=== PATIENT | female | born 1990 | race Caucasian/White ===

== ENCOUNTER → 2016-12-28 | Outpatient (CLI) | payer OTHER ==
[~2016-12-28] MED LIST: ATR25 PO; HYDR50CA2 PO; IBUP-1459 PO; LMC25 PO
--- NOTE | 2016-12-28 13:08 | DIAGNOSTIC IMAGING REPORT ---
LEFT SHOULDER MIN 2 VIEWS ROUTINE CLINICAL HISTORY: M25.512,M79.622,M54.42,M54.2 trauma. Pain. COMPARISON: None. DISCUSSION: The bones and joint spaces appear intact. There is no evidence of fracture, dislocation or bony disease. There is no evidence for soft tissue swelling. IMPRESSION: Negative study. Electronically signed by: Kit Morton M.D. 12/28/2016 1:07 PM Dictated Date/Time: 12/28/2016 1:07 PM
--- NOTE | 2016-12-28 13:12 | DIAGNOSTIC IMAGING REPORT ---
C-SPINE ROUTINE 4 OR 5 VIEWS CLINICAL HISTORY: Neck pain COMPARISON STUDY: No previous studies for comparison. FINDINGS: There is a reversal the normal cervical lordosis. No fractures or subluxations are visualized. The bony neural foramen appear patent bilaterally. IMPRESSION: Reversal of the normal cervical lordosis. No fractures or subluxations identified. Electronically signed by: Kishan Jones M.D. 12/28/2016 1:11 PM Dictated Date/Time: 12/28/2016 1:10 PM
--- NOTE | 2016-12-28 13:13 | DIAGNOSTIC IMAGING REPORT ---
THORACIC SPINE 3 VIEWS ROUTINE CLINICAL HISTORY: Thoracic pain. COMPARISON STUDY: No previous studies for comparison. FINDINGS: Vertebral body heights are maintained. No fracture or suspicious lesion is present. There is minimal rightward curvature of the midthoracic spine. Disc spaces are preserved. IMPRESSION: No significant abnormality of the thoracic spine. Electronically signed by: Aki Andrade M.D. 12/28/2016 1:11 PM Dictated Date/Time: 12/28/2016 1:10 PM
--- NOTE | 2016-12-28 13:13 | DIAGNOSTIC IMAGING REPORT ---
L-SPINE MIN 4 VIEWS ROUTINE CLINICAL HISTORY: Low back pain COMPARISON STUDY: No previous studies for comparison. FINDINGS: There is mild to moderate fecal retention. There is no pathologic bowel dilatation. An IUD is identified. There is a minimal spinal curvature convex to the right. No acute fractures or subluxations are visualized. No destructive lesions are evident. IMPRESSION: 1. No fractures, subluxations, or destructive lesions are visualized. 2. Mild to moderate fecal retention Electronically signed by: Kishan Jones M.D. 12/28/2016 1:12 PM Dictated Date/Time: 12/28/2016 1:11 PM
== END | disposition home or self-care (01) ==
LOC: C.RAD 12:16
PROVIDERS: ATTEND Family Medicine
DX: M54.2 Cervicalgia (principal); M79.622 Pain in left upper arm; M25.512 Pain in left shoulder; M54.42 Lumbago with sciatica, left side

== ENCOUNTER → 2017-06-22 | Outpatient (CLI) | payer OTHER ==
[~2017-06-22] MED LIST changes: +GADAVIST IV PRN
--- NOTE | 2017-06-22 20:31 | DIAGNOSTIC IMAGING REPORT ---
Brain and internal auditory canal MRI WITH AND WITHOUT CONTRAST HISTORY: HEAD Pressure, blurred VISION* TECHNIQUE: Multiplanar multisequence MRI of the brain and internal auditory canal were performed both before and after the intravenous administration of contrast. COMPARISON STUDY: None. FINDINGS: There are no areas of restricted diffusion to suggest acute infarction. The midline structures are intact. The paranasal sinuses are clear. The ventricles and sulci are within normal limits for age. There is no mass, hematoma, midline shift. The major vascular flow-voids at the skull base are well maintained. Postcontrast sequences show no areas of abnormal enhancement. No abnormal enhancement or masses within the internal auditory canals. The mastoid air cells are clear. No evidence for inner ear dysplasia. The 7th and 8th cranial nerves are normal in course and caliber. IMPRESSION: No acute intracranial abnormality. Normal bilateral internal auditory canals. Electronically signed by: Rafael Dumont M.D. 06/22/2017 8:30 PM Dictated Date/Time: 06/22/2017 8:22 PM
== END | disposition home or self-care (01) ==
LOC: C.MRI 18:33
PROVIDERS: ATTEND Nurse Practitioner Family
DX: H91.92 Unspecified hearing loss, left ear (principal); H53.8 Other visual disturbances; R51 Headache

== ENCOUNTER 2024-03-02 21:17 | Inpatient (IN) ==
--- OUTSIDE RECORDS SUMMARY | 2024-03-02 21:24 | External Medical Summary | Summary of Care ---
Author Name Unknown Organization [facility] Address [address] [place] [address] Phone [phone] Care Team Providers Care Small Animal Caretaker Name Role Phone Rodri Nancie Young DO Primary Care Provider Reason for Referral * Evaluate & Treat - Unlimited Visits (Within 10 days (routine)) - Pending Review Specialty Diagnoses / Procedures Referred By Eduardo ball Referred To Contact Rheumatology Diagnoses Hypermobile Azeem-Danlos syndrome Awa Damon CRNP [address] [place] [address] Referral ID Status Reason Start Date Expiration Date Visits Requested Visits Authorized [id number] Pending Review Specialty Services Required 02/29/[phone] Question Answer Referral Priority Within 10 days (routine) Where should this appointment be scheduled? [facility] Reason for referral: Other Conditions Comments Notes posted. Encounter Details Date Type Department Care Team (Late st Contact Info) Description 02/29/2024 Orders Only [facility], [address] *DO NOT REMOVE THIS DEPARTMENT* [place] [id number] Request, External Referral Hypermobile Azeem-Danlos syndrome* Allergies Active Allergy Reactions Criticality Noted Date Comments Latex 06/18/2023 Other reaction(s): rash documented as of this encounter (statuses as of 02/29/2024) Medications Medication Sig Dispensed Refills Start Date End Date Status azithromycin (ZITHROMAX Z-GHISLAINE) 250 MG TabletIndications:Kvng galvez Take two tablets by mouth on first day, then 1 tablet daily until gone 6 Tab 0 10/19/2015 Active Escitalopram Oxalate 5 MG Oral Tablet (Lexapro) TAKE 1 TABLET BY MOUTH EVERY DAY DIRECTED 0 05/30/2023 Active lamoTRIgine 150 MG Oral Tablet (LaMICtal) 1 Tablet. 0 01/22/2023 Ac tive Propranolol HCl 20 MG Oral Tablet (Inderal) TAKE 1 TABLET BY MOUTH EVERY DAY NEEDED 0 06/03/2023 Active Mirena (52 MG) 20 MCG/DAY Intrauterine Intrauterine Device (Levonorgestrel) Insert 1 Each into uterus once. 0 Active documented as of this encounter (statuses as of 02/29/2024) Active Problems Problem Noted Date Diagnosed Date Bipolar I disorder, most recent episode depresse d, moderate 04/01/2013 Bulimia 04/01/2013 ATYPICAL EATING DISORDER 05/02/2004 documented as of this encounter (statuses as of 02/29/2024) Resolved Problems Problem Noted Date Diagnosed Date Resolved Date Absence of menstruation 07/03/200504/2006 Absence of menstruation 05/02/20040 04/2004 Varicella without complication 05/24/2006 documented as of this encounter (statuses as of 02/29/2024) Immunizations Name Administration Dates Next Due HEP A - Hepatitis A (Adult > 18 yrs) 06/13/2012 Hepatitis B, 0-19 yrs 10/20/1999 Meningococcal Conjugate Vaccine (Menactra/Menveo ) 05/24/2006 PPD 06/13/2012,05/24/2006 documented as of this encounter Social History Tobacco Use Types Packs/Day Years Used Date Smoking Tobacco: Never Smokeless Tobacco: Never Alcohol Use Standard Drinks/Week Comments No 0 (1 standard drink = 0.6 oz pur e alcohol) Sex and Gender Information Value Date Recorded Sex Assigned at Not on file Gender Identity Not on file Sexual Orientation Not on file Job Start Date Occupation Industry Not on file Not on file Not on file documented as of this encounter Plan of Treatment Scheduled Referrals Name Type Priority Associated Diagnoses Order Schedule RHEUMATOLOGY REFERRAL OP Referral Within 10 days (routine) Hypermobile Azeem-Danlos syndrome Ordered: 02/29/2024 Health Maintenance Due Date Last Done Comments DTaP,Tdap,and Td Vaccines (5 - Tdap) 08/26/2003 08/25/2003, 02/21/1993, 08/31/1989, Additional history exists Pap Smear 10/01/2015 10/01/2012, 08/14/2011 Cervical Cancer Screening 02/19/2018 HPV/Co-Test 02/19/2018 COVID-19 Vaccine ( season) 2023 11/02/2021, 03/31/2021, 03/10/2021 Influenza Vaccine (FLU shot) (Season Ended) 2024 08/19/2021, 10/30/2003 Hepatitis B Completed 10/20/1999, 04/20, 04/05/1999 MENINGOCOCCAL (MENACTRA/MENVEO) Completed 05/24/2006, 05/24/2006 Pneumococcal Vaccine: Pediatrics (0 to 5 Years) and At-Risk Patients (6 to 64 Years) Aged Out No longer eligible based on patient's age to complete this topic documented as of this encounter Medical Devices Not on filedocumented as of this encounter Visit Diagnoses Diagnosis Hypermobile Azeem-Danlos syndrome- Primary documented in this encounter Care Teams Small Animal Caretaker Relationship Specialty Start Date End Date Nancie Mace DO [address] [place] [address] PCP - General Family Medicine 06/13/12 documented as of this encounter
--- OUTSIDE RECORDS SUMMARY | 2024-03-02 21:24 | External Medical Summary | Continuity of Care Document ---
Author Name Unknown Organization [facility] [address] Address [address] [place], [place] [id number] Care Team Providers Care Print Decorator Name Role Phone Karyn Mcmahan Primary Care Physician [phone] [id number]): [facility]/25/24 - 02/25/24 [facility] [address] [facility] [address] [phone] Encounter Diagnosis Other rodent exterminator (current) drug therapy(Final) - Insect bite (nonvenomous), left hip, initial encounter(Final) - Chronic fatigue, unspecified(Final) - Discharge Disposition: Home or Self Care Attending Physician: RONY Olivo Erin C Referring Physician: RONY Olivo Erin C Allergies, Adverse Reactions, Alerts Substance Reaction Severity Status Latex rash Active Immunizations Given and Recorded Vaccine Date Status Refusal Reason SARS-CoV-2 (COVID-19) mRNA BNT-162b2 vax 1 11/02/21 Recorded SARS-CoV-2 (COVID-19) mRNA BNT-162b2 vax 2 03/31/21 Recorded SARS-CoV-2 (COVID-19) mRNA BNT-162b2 vax 3 03/10/21 Recorded influenza virus vaccine, inactivated 08/19/21 Rafael rded influenza virus vaccine, inactivated 08/24/20 Give n tetanus/diphtheria/pertuss, acel (Tdap) 06/21/20 G iven hepatitis A adult vaccine 4 06/13/12 Recorded meningococcal conjugate vaccine 5 05/24/06 Recorde d tetanus toxoids-diphtheria, Td (Adult) 6 08/25/03 Recorded hepatitis B pediatric vaccine 7 10/20/99 Recorded hepatitis B adult vaccine 8 05/16/99 Recorded hepatitis B adult vaccine 9 04/05/99 Recorded poliovirus vaccine, live, trivalent 10 02/21/93 Re corded poliovirus vaccine, live, trivalent 11 08/31/89 Re corded poliovirus vaccine, live, trivalent 12 05/21/89 Re corded poliovirus vaccine, live, trivalent 13 88 Re corded poliovirus vaccine, live, trivalent 14 88 Re corded poliovirus vaccine, live, trivalent 15 88 Re corded measles/mumps/rubella virus vaccine 16 02/21/93 Re corded measles/mumps/rubella virus vaccine 17 05/21/89 Re corded diphtheria/pertussis, whole cell/tetanus 18 02/21/93 Recorded diphtheria/pertussis, whole cell/tetanus 19 09/03/89 Recorded diphtheria/pertussis, whole cell/tetanus 20 08/31/89 Recorded diphtheria/pertussis, whole cell/tetanus 21 05/21/89 Recorded diphtheria/pertussis, whole cell/tetanus 22 88 Recorded diphtheria/pertussis, whole cell/tetanus 23 88 Recorded diphtheria/pertussis, whole cell/tetanus 24 88 Recorded diphtheria/pertussis, whole cell/tetanus 25 88 Recorded 1Result Comment: 2022-01-20: Historical information-source unspecified 2Result Comment: 2022-01-20: Historical information-source unspecified 3Result Comment: 2022-01-20: Historical information-source unspecified 4Result Comment: 2020-06-14: Historical information-source unspecified 5Result Comment: 2020-06-14: Historical information-source unspecified 6Result Comment: 2020-06-14: Historical information-source unspecified 7Result Comment: 2020-06-14: Historical information-source unspecified 8Result Comment: 2020-06-14: Historical information-source unspecified 9Result Comment: 2020-06-14: Historical information-source unspecified 10Result Comment: 2020-06-14: Historical information-source unspecified 11Result Comment: 2020-06-14: Historical information-source unspecified 12Result Comment: 2020-06-14: Historical information-source unspecified 13Result Comment: 2020-06-14: Historical information-source unspecified 14Result Comment: 2020-06-14: Historical information-source unspecified 15Result Comment: 2020-06-14: Historical information-source unspecified 16Result Comment: 2020-06-14: Historical information-source unspecified 17Result Comment: 2020-06-14: Historical information-source unspecified 18Result Comment: 2020-06-14: Historical information-source unspecified 19Result Comment: 2020-06-14: Historical information-source unspecified 20Result Comment: 2020-06-14: Historical information-source unspecified 21Result Comment: 2020-06-14: Historical information-source unspecified 22Result Comment: 2020-06-14: Historical information-source unspecified 23Result Comment: 2020-06-14: Historical information-source unspecified 24Result Comment: 2020-06-14: Historical information-source unspecified 25Result Comment: 2020-06-14: Historical information-source unspecified Medications escitalopram 5 mg oral tablet Start: 01/11/21 8:24:00 EST, See Instructions, Disp# 30 each, ., other Start Date: 01/11/21 Status: Ordered hydrOXYzine Start: 02/04/24 16:13:00 EDT Start Date: 02/04/24 Status: Ordered ibuprofen Start: 02/03/16 11:48:00, 200 mg =, PO, q6h, PRN: as needed for menstrual pain Start Date: 02/03/16 Status: Ordered lamoTRIgine 150 mg oral tablet Start: 01/22/23 8:35:00 EST, 1 tab, PO, Daily Start Date: 01/22/23 Status: Ordered Mirena 52 mg intrauterine device Start: 04/26/21 8:10:00 EDT, 1 each, intrauterine, ONCE, Disp# 1 each, other Start Date: 04/26/21 Status: Ordered propranolol Start: 12/14/20 13:02:00 EST, 20 mg =, PO Start Date: 12/14/20 Status: Ordered Problem List Condition Confirmation Course Effective Dates Status Health St atus Informant Bipolar 2 disorder Confirmed Active Dysmenorrhea Confirmed Active KIT (generalized anxiety disorder) Confirmed Active Hx of bulimia nervosa Confirmed Active Chronic left SI joint pain Confirmed Active Procedures Procedure Date Related Diagnosis Body Site Status IUD contraception 1 11/19/20 Compl eted Insertion of IUD 09/11/16 Complete d 1Mirena Results Laboratory List Name Date Complete Blood Count w Differential (CBC ,DIFFH) 02/25/24 Mariya Thomas Antibodies. (MARIYA THOMAS A BS) 02/25/24 Lyme Antibodies, IgG and IgM (LYME ABS I GG,IGM) 02/25/24 Request to FAX Report (First Location) ( ACC NO TO BE FAXED) 02/25/24 Viral Capsid Ab, IgM (VIRAL CAPSID AB, I GM) 02/25/24 Most recent to oldest [Reference Range]: 1 Lyme Antibodies, IgG/IgM [NEG] PRESUMPTI VELY POSITIVE, SCREENING ASSAY, CONFIRMATION TO FOLLOW *Abnormal* (02/25/24 4:03 PM) Phone No [phone] (02/25/24 4:03 PM) MPV [9.0-12.2 fL] 12.0 fL (02/25/24 4:03 PM) Immature Gran% 0.0 % (02/25/24 4:03 PM) Neut% 53.8 % (02/25/24 4:03 PM) Lymph% 39.3 % (02/25/24 4:03 PM) [place]% 4.7 % (02/25/24 4:03 PM) Baso% 1.1 % (02/25/24 4:03 PM) Eos% 1.1 % (02/25/24 4:03 PM) Immat Gran, Abs [0-0.4 K/uL] 0.00 K/uL 2 (02/25/24 4:03 PM) Neut, Abs [2.0-7.7 K/uL] 2.55 K/uL (02/25/24 4:03 PM) Lymph, Abs [1.0-3.4 K/uL] 1.86 K/uL (02/25/24 4:03 PM) [place], Abs [0-1.0 K/uL] 0.22 K/uL (02/25/24 4:03 PM) Baso, Abs [0-0.1 K/uL] 0.05 K/uL (02/25/24 4:03 PM) Eos, Abs [0-0.5 K/uL] 0.05 K/uL (02/25/24 4:03 PM) Type of Diff: AUTO *Unknown* (02/25/24 4:03 PM) RDW [11.5-14.2 %] 12.0 % (02/25/24 4:03 PM) EBV Interp INDETERMINATE-PLEASE RESUBMIT *Unknown* (02/25/24 4:03 PM) EBV Nuc Ab [NEG] NEGATIVE 3 *Unknown* (02/25/24 4:03 PM) Hct [35-44 %] 36.5 % (02/25/24 4:03 PM) Hgb [11.7-15.0 g/dL] 11.9 g/dL (02/25/24 4:03 PM) MCH [28-33 pg] 29.5 pg (02/25/24 4:03 PM) MCHC [32-36 g/dL] 32.6 g/dL (02/25/24 4:03 PM) MCV [81-96 fL] 90.6 fL (02/25/24 4:03 PM) Plts [150-350 K/uL] 190 K/uL (02/25/24 4:03 PM) RBC [3.90-5.00 M/uL] 4.03 M/uL (02/25/24 4:03 PM) V Capsid IgG [NEG] POSITIVE *Abnormal* (02/25/24 4:03 PM) V Capsid IgM [NEG] NEGATIVE 4 *Unknown* (02/25/24 4:03 PM) WBC [4.0-10.4 K/uL] 4.73 K/uL (02/25/24 4:03 PM) 1Result Comment: Testing Performed By: Dept of Pathology [facility] [address], [address] [place] [address] 2Result Comment: Testing Performed By: Dept of Pathology [facility] [address], [address] [place] [address] 3Result Comment: Results from immunocompromised patients should be interpreted with caution. 4Result Comment: Results from immunocompromised patients should be interpreted with caution. Social History Social History Type Response Smoking Status Never smoked cigaret kevin Sex Female Patient Care team information Care Team Personnel Name: FERNANDO Mcmahan Tara Position: Nurse Pract - Family Med Member Role: Primary Care Provider Address: Address: [address] [place] [address], [place] [address] [place] Care Team Related Persons Name: SHAY DOWNING Name: ARNOLDO CHAPMAN Address: home [address] [place] [phone]
[2024-03-02 22:07] LABS: Appearance Urine Cloudy (Clear); Bacteria Urine Automated 3+ (None Seen); Bilirubin Urine Negative (Negative); Blood Urine Negative (Negative); Color Urine Yellow; Glucose Urine UA Negative (Negative); Ketones Urine Negative (Negative); Leukocyte Esterase Urine 1+ (Negative); Nitrite Urine Negative (Negative); Protein Urine Negative (Negative); Specific Gravity Urine 1.017 (1.000-1.030); Urobilinogen Urine Negative (Negative); pH Urine 5.5 (4.5-7.5)
[2024-03-02 22:10] LABS: Basophils # (auto) 0.06 K/uL (0.00-0.20); Eosinophils # (auto) 0.06 K/uL (0.00-0.50); Hematocrit (blood only) 36.7 % (37.0-47.0); Hemoglobin 12.4 g/dl (12.0-16.0); Immature Granulocytes # (auto) 0.02 K/uL (0.01-0.20); Immature Granulocytes % (auto) 0.3 %; Lymphocytes # (auto) 1.75 K/uL (1.20-3.40); Mean Corpuscular Hemoglobin 30.2 pg (25.0-34.0); Mean Corpuscular Hgb Conc 33.8 g/dL (32.0-36.0); Mean Corpuscular Volume 89.5 fL (80.0-100.0); Mean Platelet Volume 12.8 fL (9.4-12.4); Monocytes # (auto) 0.44 K/uL (0.11-0.59); Monocytes % (auto) 7.1 %; Neutrophils # (auto) 3.91 K/uL (1.40-6.50); Neutrophils % (auto) 62.6 %; Platelet Count 200 K/uL (130-400); RDW Coefficient of Variation 11.9 % (11.5-14.5); RDW Standard Deviation 38.4 fL (36.4-46.3); White Blood Count 6.24 K/ul (4.8-10.8)
[2024-03-02 22:27] LABS: Acetaminophen < 3 ug/ml (10-30); Albumin Globulin Ratio 1.7 (0.9-2); Albumin Level 4.8 gm/dl (3.4-5.0); BUN Creatinine Ratio 16.3 (10-20); Bilirubin,Total 0.3 mg/dl (0.2-1.0); Calcium 9.6 mg/dl (8.6-10.3); Est GFR (African American) 109.9 ml/min; Est GFR (Non-African American) 94.9 ml/min; Globulin 2.9 gm/dl (2.5-4.0); Salicylate < 3.0 mg/dl (3.0-30); Total Protein 7.7 gm/dl (6.0-8.3)
[2024-03-02 22:37] LABS: Amphetamines+Metham, Urine Neg (Neg); Barbiturates, Urine Neg (Neg); Benzodiazepine, Urine Neg (Neg); Cocaine, Urine Neg (Neg); MDMA (Ecstacy), Urine Neg (Neg); Marijuana, Urine Neg (Neg); Methadone, Urine Neg (Neg); Opiate, Urine Neg (Neg); Phencyclidine, Urine Neg (Neg)
[2024-03-02 22:42] LABS: Thyroid Stimulating Hormone 6.526 uIu/ml (0.300-4.500)
[2024-03-02 23:17] LABS: T4 Free Thyroxine 0.7 ng/dl (0.61-1.60)
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
[2024-03-03 00:03] LABS: Pregnancy Test, Urine Negative (Negative)
[2024-03-03] MEDS ORDERED: MAGNESIUM HYDROXIDE SUSP 30 ML UDC PO PRN (00:55)
[2024-03-03] MEDS ORDERED: BISMUTH SUBSALICYLATE LIQD 236 ML PO PRN (00:55)
[2024-03-03] MEDS ORDERED: SODIUM CHLORIDE 0.65% NA SOLN 45 ML (OCEAN) PRN (00:55)
[2024-03-03] MEDS ORDERED: ACETAMINOPHEN 325 MG TAB PO PRN (00:55)
[2024-03-03] MEDS ORDERED: ALUMINUM/MAGNESIUM SUSP 30 ML UDC PO PRN (00:55)
--- NOTE | 2024-03-03 04:02 | Emergency Department Note ---
ED Visit Note I received this patient in signout at the change of shift from Dr. Moreau pending bed search on a 201 for suicidal ideation. The patient was referred to [facility] and accepted for inpatient admission on a voluntary basis. Please refer to previous documentation for further details of the history, physical and visit. .
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
[2024-03-03] MEDS: lamoTRIgine 100 MG TAB PO SCH (11:48)
[2024-03-03] MEDS: valACYclovir HCL 500 MG TABLET PO SCH ×2 (11:48→20:52)
[2024-03-03] MEDS: ESCITALOPRAM OXALATE 10 MG TAB PO SCH (15:19)
[2024-03-03] MEDS: PROPRANOLOL HCL 20 MG TAB PO PRN (17:33)
[2024-03-03] MEDS ORDERED: ARTIFICIAL TEARS OPB PRN (20:27)
[2024-03-03] MEDS: hydrOXYzine HCl 25 MG TAB PO PRN ×2 (22:09→23:36)
--- NOTE | 2024-03-04 08:48 | Psychiatric Progress Note ---
Date of Service March 04, 2024 Impression / Recommendations Lelia Rosenthal is a 34 year old woman with a history of eating disorder, BPAD and KIT who was admitted for increased impulsivity, self-harm, SI and anger in the context of multiple recent stressors including health issues (joint pain), challenging relationship with her boyfriend due to his significant alcohol use disorder and intense emotional reactivity. 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 She is deemed in need of psychiatric hospitalization for diagnostic clarification, safety and stabilization, medication management and development of further coping skills. MNPR due to recent impulsive anger/aggression 03/04/2024: Increased distress last evening after taking on the phone with her partner. She is trying to process recent events and how her anger got to the point of her becoming physically aggressive. Processing the shame associated with this but also the anger she still has from her partner's recent lying and secretive behavior around his alcohol use. She is planning to spend time staying at her parents home until her partner can move out of their apartment. Working on increasing coping skills and considering use of DBT to develop better ways of managing distress and emotional reactivity. Mood Disorder Questionnaire consistent with BPAD and screening tool and discussion also consistent with likely diagnosis of Borderline Personality Disorder for which we discussed self guided DBT resources since there is no local DBT IOP or DBT group which she is very motivated to try. Overall, I spent a total of 52 minutes on this case including meeting with the patient, reviewing the chart, nursing report, multidisciplinary team meeting, orders, and documentation. (1) Suicidal ideations: (2) Homicidal ideations: (3) Borderline personality disorder in adult: (4) Bipolar disorder: (5) KIT (generalized anxiety disorder): Plan 03/04/2024: Continue current medications and tx plan. 03/03/2024: The patient was admitted to the [facility] ([facility]) on q15 min checks (behavioral with suicide precautions) for safety. The patient will participate in group, recreational, and milieu therapies and will be offered additional individual and family sessions as clinically appropriate. -Mood Disorder Questionnaire & [place] BPD Screening Tool -Continue prior to admission: * lamictal 200mg daily * propranolol 20mg daily prn for anxiety * Vistaril 50mg HS prn for insomnia -Discontinue escitalopram given concern that it may be activating and leading to increased irritability Inventory Assets Strengths: supportive relationships, willing to get treatment, great advocate for herself Needs: safety and stabilization, medication adjustment, additional coping skills, increased outpatient services Suicide Risk Level Suicide Risk Level: High-Moderate (q15 min suicide checks) (SI and recent self- harm with increased irritability and impulsivity but feels safe in the hospital, able to safety contract and agrees to let nursing/staff know should they develop plan, intent or feel unable to remain safe.) Suicide Risk Level Comments: Risk Factors Assessment Male: No : Yes Do You Have Access To A Gun?: No (will confirm again upon discharge) Health Problems: Yes Mental Health Diagnoses: Yes Substance Use Disorders: No Previous Attempt: No Family History of Suicide: No Previous Psychiatric Hospitalization: Yes Protective Factors Assessment Employed: Yes Stable Relationships: Yes Supportive Family: Yes Good Rapport with Provider: Yes Interval History Identifying Information OLIVIA DOWNING is a 34-year-old woman who currently lives in [place], has a history of BPAD, KIT, self-harm and bulimia and was admitted on 03/03/24 00:55 on a 201 voluntary commitment for SI and felt unable to remain safe and aggression with fear of harming her boyfriend due to impulsivity. Chief Complaint "I had a rough night". Review of Systems Sleep Information Total Hours of Sleep: 5.30 Sleep Comments: Pt required PRN Vistaril for sleep Meal Information Percent Meal Consumed - Breakfast: 100 Percent Meal Consumed - Lunch: 100 Percent Meal Consumed - Dinner: 100 Subjective Subjective Patient was seen & assessed and interval progress reviewed with treatment team nursing and social work. Attending most groups. [place] been [place]. Got prn Vistaril last night. Called her boyfriend last night after that felt unsafe by herself with thoughts of suicide and had urge to self-harm so she remained in the group room and utilized support from staff. She reports having a difficult time last night after calling her boyfriend. Notes she experienced an intense panic attack after the call, accompanied by strong self-harm urges and suicidal ideations. She notes making progress with personal tasks such as trying to schedule an interview for a new job since yesterday and is finding the groups today very helpful. Struggling with shame from how she reacted when angry prior to admission and notes she can never let herself become physically aggressive when she experiences anger in the future as it happened so quickly and impulsively. We reviewed the mood disorder questionnaire which was consistent with a diagnosis of BPAD. She also identifies with many symptoms of Borderline Personality Disorder (BPD) and had a positive screen on the [facility] BPD screening tool. She recognizes the need to work on her anger and impulse control and is considering incorporating daily mindfulness and yoga practices to help shift into a parasympathetic state and out of fight/flight/freeze. Physical Exam Psychiatric Orientation: alert and oriented x 3 Apperance: appropriately dressed and appropriately groomed Eye Contact: good eye contact Motor Behavior: no abnormal motor movements Speech: normal rate/rhythm/volume of speech Affect: + depressed affect and + anxious affect Mood: + depressed mood and + anxious mood Thought Process: goal directed thought process Thought Content: reality based without delusions Suicidal Thoughts: denies suicidal plan and denies suicidal intent; + reports suicidal thoughts (intermittent thoughts ) Homicidal Thoughts: denies homicidal plan; + reports homicidal thoughts (during episodes of anger & worries about doing somethingshe doesn't intend ) Hallucinations: no auditory hallucinations and no visual hallucinations Cognition: recent memory grossly intact, remote memory grossly intact, attention grossly intact and language grossly intact Estimated Intelligence: consistent with education level Insight: + fair insight Judgment: + fair judgement Vital Signs (Past 24 Hours) Last Vital Signs Temp 37 C 03/04/24 06:37 Pulse 96 H 03/04/24 06:38 Resp 16 03/04/24 06:37 BP 92/55 L 03/04/24 06:38 Pulse Ox 100 03/03/24 01:30 O2 Del Method Room Air 03/03/24 01:30 Results & Data ([facility]) Current Inpatient Medications Current Inpatient Medications: Current Inpatient Medications Acetaminophen (Acetaminophen 325 Mg Tab) 650 mg PO Q4H PRN PRN Reason: Headache or Minor Fever Stop: 04/02/24 00:54 Al Hydrox/Mg Hydrox/Simethicone (Aluminum/Magnesium Susp 30 Ml Udc) 30 ml PO Q4H PRN PRN Reason: GI Upset Stop: 04/02/24 00:54 Artificial Tears (Artificial Tears) 1 drops OPB QID PRN PRN Reason: Dryness Stop: 04/02/24 20:26 Bismuth Subsalicylate (Bismuth Subsalicylate Liqd 236 Ml) 15 ml PO PRN PRN PRN Reason: Loose Stool Stop: 04/02/24 00:54 Hydroxyzine HCl (Hydroxyzine Hcl 25 Mg Tab) 50 mg PO HSZ PRN PRN Reason: Insomnia Stop: 04/02/24 00:54 Last Admin: 03/03/24 23:36 Dose: 50 mg Hydroxyzine HCl (Hydroxyzine Hcl 25 Mg Tab) 25 mg PO Q4H PRN PRN Reason: Anxiety Stop: 04/02/24 00:54 Last Admin: 03/03/24 22:09 Dose: 25 mg Lamotrigine (Lamotrigine 100 Mg Tab) 200 mg PO DAILY VALORIE; Protocol Stop: 04/02/24 10:59 Last Admin: 03/04/24 07:42 Dose: 200 mg Magnesium Hydroxide (Magnesium Hydroxide Susp 30 Ml Udc) 30 ml PO DAILY PRN PRN Reason: Constipation Stop: 04/02/24 00:54 Propranolol HCl (Propranolol Hcl 20 Mg Tab) 20 mg PO DAILY PRN PRN Reason: Anxiety Stop: 04/02/24 10:51 Last Admin: 03/03/24 17:33 Dose: 20 mg Sodium Chloride (Sodium Chloride 0.65% Na Soln 45 Ml ([place])) 1 - 2 sprays NA PRN PRN PRN Reason: Nasal Dryness/Congestion Stop: 04/02/24 00:54 Valacyclovir HCl (Valacyclovir Hcl 500 Mg Tablet) 1,000 mg PO BID VALORIE Stop: 04/02/24 20:59 Last Admin: 03/04/24 07:43 Dose: 1,000 mg Mental Health & Subst Abuse Tx Therapist Name of Therapist: Baylee Michele Post Discharge Appointments Primary Care Physician Name Of Family Doctor/PCP: [facility] Itz Mcmahan (4) Bipolar disorder Active/Remission status: remission status unspecified Qualified Code(s): F31.9 - Bipolar disorder, unspecified
--- NOTE | 2024-03-05 08:57 | Psychiatric Progress Note ---
Date of Service March 05, 2024 Impression / Recommendations Impression Ariadna is a 34 year old woman with a history of eating disorder, BPAD and KIT who was admitted for increased impulsivity, self-harm, SI and anger in the context of multiple recent stressors including health issues (joint pain), challenging relationship with her boyfriend due to his significant alcohol use disorder and intense emotional reactivity. 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 She is deemed in need of psychiatric hospitalization for diagnostic clarification, safety and stabilization, medication management and development of further coping skills. MNPR due to recent impulsive anger/aggression 03/05/2024: Ongoing periods of self-harm urges and SI related to stress about her relationship and stressors outside the hospital. Increased shame and guilt about violence prior to hospitalization but also processing impact of her relationship dynamics on her mood. Discussed medication options to help with sleep. She consents to starting melatonin for sleep and wants to trial clonidine 0.1mg po HS as off-label for anxiety and insomnia (as wants to avoid any sedating medications that could increase appetite significantly). Reviewed side effects including but not limited to: sedation, low BP, syncope. Overall, I spent a total of 45 minutes on this case including meeting with the patient, reviewing the chart, nursing report, multidisciplinary team meeting, orders, and documentation. (1) Suicidal ideations: (2) Homicidal ideations: (3) Borderline personality disorder in adult: (4) Bipolar disorder: (5) KIT (generalized anxiety disorder): Plan 03/05/2024: Start clonidine 0.1mg po HS and melatonin 3mg HS 03/04/2024: Continue current medications and tx plan. 03/03/2024: The patient was admitted to the [facility] ([facility] mental health unit) on q15 min checks (behavioral with suicide precautions) for safety. The patient will participate in group, recreational, and milieu therapies and will be offered additional individual and family sessions as clinically appropriate. -Mood Disorder Questionnaire & [place] BPD Screening Tool -Continue prior to admission: * lamictal 200mg daily * propranolol 20mg daily prn for anxiety * Vistaril 50mg HS prn for insomnia -Discontinue escitalopram given concern that it may be activating and leading to increased irritability Inventory Assets Strengths: supportive relationships, willing to get treatment, great advocate for herself Needs: safety and stabilization, medication adjustment, additional coping skills, increased outpatient services Suicide Risk Level Suicide Risk Level: Moderate (q15 min suicide checks) (SI and recent self-harm with increased irritability and impulsivity but feels safe in the hospital, able to safety contract and agrees to let nursing/staff know should they develop plan, intent or feel unable to remain safe.) Suicide Risk Level Comments: Risk Factors Assessment Male: No : Yes Do You Have Access To A Gun?: No (will confirm again upon discharge) Health Problems: Yes Mental Health Diagnoses: Yes Substance Use Disorders: No Previous Attempt: No Family History of Suicide: No Previous Psychiatric Hospitalization: Yes Protective Factors Assessment Employed: Yes Stable Relationships: Yes Supportive Family: Yes Good Rapport with Provider: Yes Interval History Identifying Information ARIADNA DOWNING is a 34-year-old woman who currently lives in [place], has a history of BPAD, KIT, self-harm and bulimia and was admitted on 03/03/24 00:55 on a 201 voluntary commitment for SI and felt unable to remain safe and aggression with fear of harming her boyfriend due to impulsivity. Chief Complaint "I think we need to take a long break". Review of Systems Sleep Information Total Hours of Sleep: 5 Sleep Comments: pt on q-15 minute checks Meal Information Percent Meal Consumed - Breakfast: 100 Percent Meal Consumed - Lunch: 100 Percent Meal Consumed - Dinner: 100 Subjective Subjective Patient was seen & assessed and interval progress reviewed with treatment team nursing and social work. Suicidal last night after self-awareness group and got a prn propranolol which she found helpful. Did not want to visit with her mother last night. Slept poorly last night. Feels her mornings have been getting better but she struggles with significant anxiety, panic and thoughts of self-harm in the afternoon and evening. She recognizes negative impact of her romantic relationship and need to take a clean break but this is challenged by her partner not wanting to leave her apartment and she feels unable to make him leave immediately until he can find a new place to live. She's considering staying with her parents to have space. She is hopeful about the potential for a new job but feels if this falls through she would be more hopeless and might feel like life isn't worth living. We explored the impact of how recent stress has impacted her black and white thinking and practiced challenging cognitive distortions which she found helpful for reframing these hopeless thoughts. Physical Exam Psychiatric Orientation: alert and oriented x 3 Apperance: appropriately dressed and appropriately groomed Eye Contact: good eye contact Motor Behavior: no abnormal motor movements Speech: normal rate/rhythm/volume of speech Affect: + depressed affect, + anxious affect, + tearful affect and + irritable affect Mood: + depressed mood, + anxious mood and + irritable mood Thought Process: goal directed thought process Thought Content: reality based without delusions Suicidal Thoughts: denies suicidal plan and denies suicidal intent; + reports suicidal thoughts (intermittent thoughts ) Homicidal Thoughts: denies homicidal thoughts and denies homicidal plan Hallucinations: no auditory hallucinations and no visual hallucinations Cognition: recent memory grossly intact, remote memory grossly intact, attention grossly intact and language grossly intact Estimated Intelligence: consistent with education level Insight: + fair insight Judgment: + fair judgement Vital Signs (Past 24 Hours) Last Vital Signs Temp 37 C 03/05/24 06:23 Pulse 86 03/05/24 06:23 Resp 16 03/05/24 06:23 BP 88/59 L 03/05/24 06:23 Pulse Ox 100 03/03/24 01:30 O2 Del Method Room Air 03/03/24 01:30 Results & Data ([facility]) Current Inpatient Medications Current Inpatient Medications: Current Inpatient Medications Acetaminophen (Acetaminophen 325 Mg Tab) 650 mg PO Q4H PRN PRN Reason: Headache or Minor Fever Stop: 04/02/24 00:54 Al Hydrox/Mg Hydrox/Simethicone (Aluminum/Magnesium Susp 30 Ml Udc) 30 ml PO Q4H PRN PRN Reason: GI Upset Stop: 04/02/24 00:54 Artificial Tears (Artificial Tears) 1 drops OPB QID PRN PRN Reason: Dryness Stop: 04/02/24 20:26 Bismuth Subsalicylate (Bismuth Subsalicylate Liqd 236 Ml) 15 ml PO PRN PRN PRN Reason: Loose Stool Stop: 04/02/24 00:54 Hydroxyzine HCl (Hydroxyzine Hcl 25 Mg Tab) 50 mg PO HSZ PRN PRN Reason: Insomnia Stop: 04/02/24 00:54 Last Admin: 03/05/24 01:18 Dose: 50 mg Hydroxyzine HCl (Hydroxyzine Hcl 25 Mg Tab) 25 mg PO Q4H PRN PRN Reason: Anxiety Stop: 04/02/24 00:54 Last Admin: 03/03/24 22:09 Dose: 25 mg Lamotrigine (Lamotrigine 100 Mg Tab) 200 mg PO DAILY VALORIE; Protocol Stop: 04/02/24 10:59 Last Admin: 03/05/24 08:04 Dose: 200 mg Magnesium Hydroxide (Magnesium Hydroxide Susp 30 Ml Udc) 30 ml PO DAILY PRN PRN Reason: Constipation Stop: 04/02/24 00:54 Propranolol HCl (Propranolol Hcl 20 Mg Tab) 20 mg PO DAILY PRN PRN Reason: Anxiety Stop: 04/02/24 10:51 Last Admin: 03/04/24 18:40 Dose: 20 mg Sodium Chloride (Sodium Chloride 0.65% Na Soln 45 Ml ([place])) 1 - 2 sprays NA PRN PRN PRN Reason: Nasal Dryness/Congestion Stop: 04/02/24 00:54 Valacyclovir HCl (Valacyclovir Hcl 500 Mg Tablet) 1,000 mg PO BID VALORIE Stop: 04/02/24 20:59 Last Admin: 03/05/24 08:05 Dose: 1,000 mg Mental Health & Subst Abuse Tx Psychiatrist Name of Psychiatrist: Angelic Olivo Psychiatrist's Date Of Appointment With Psychiatric Provider: 03/24/2024 Time of Appointment with Psychiatrist: 8:45AM- arrival time 8:30AM Psychiatric Appointment Comment: [address] [place] [address] Therapist Name of Therapist: Baylee Michele Therapist's Date of Therapist Appointment: 03/10/2024 Time of Therapist Appointment: 3pm Therapy Appointment Comment: [address], [place], [place] [id number] Post Discharge Appointments Primary Care Physician Name Of Family Doctor/PCP: [facility] Itz Mcmahan Primary [facility] Date of Future Appointment with PCP: 03/11/2024 Time of Appointment with PCP: 1:45PM Provider Appointment Comment: [address], [place] [address] (4) Bipolar disorder Active/Remission status: remission status unspecified Qualified Code(s): F31.9 - Bipolar disorder, unspecified
[2024-03-05] MEDS: MELATONIN 3 MG TAB PO SCH (20:35)
[2024-03-05] MEDS: cloNIDine HCL 0.1 MG TAB PO SCH (21:26)
[2024-03-05] MEDS: PROPRANOLOL HCL 20 MG TAB PO SCH (23:35)
--- NOTE | 2024-03-06 08:58 | Psychiatric Progress Note ---
Date of Service March 06, 2024 Impression / Recommendations Impression Ariadna is a 34 year old woman with a history of eating disorder, BPAD and KIT who was admitted for increased impulsivity, self-harm, SI and anger in the context of multiple recent stressors including health issues (joint pain), challenging relationship with her boyfriend due to his significant alcohol use disorder and intense emotional reactivity. 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 She is deemed in need of psychiatric hospitalization for diagnostic clarification, safety and stabilization, medication management and development of further coping skills. MNPR due to recent impulsive anger/aggression 03/06/2024: Ongoing periods of self-harm urges but no SI and after intermittent tearfulness following the support meeting with her partner she reports more stability of her mood, improved sleep with medication adjustments and desire to discharge tomorrow and plan to visit with her mother this evening. Processed ways DBT could be very helpful for self-harm behaviors related to emotional distress and amygdala hyperactivity. Overall, I spent a total of 35 minutes on this case including meeting with the patient, reviewing the chart, nursing report, multidisciplinary team meeting, orders, and documentation. (1) Suicidal ideations: (2) Borderline personality disorder in adult: (3) Bipolar disorder: (4) KIT (generalized anxiety disorder): Plan 03/06/2024: Continue current medications and tx plan. 03/05/2024: Start clonidine 0.1mg po HS and melatonin 3mg HS 03/04/2024: Continue current medications and tx plan. 03/03/2024: The patient was admitted to the [facility] ([facility] inpatient mental health unit) on q15 min checks (behavioral with suicide precautions) for safety. The patient will participate in group, recreational, and milieu therapies and will be offered additional individual and family sessions as clinically appropriate. -Mood Disorder Questionnaire & Lopez BPD Screening Tool -Continue prior to admission: * lamictal 200mg daily * propranolol 20mg daily prn for anxiety * Vistaril 50mg HS prn for insomnia -Discontinue escitalopram given concern that it may be activating and leading to increased irritability Inventory Assets Strengths: supportive relationships, willing to get treatment, great advocate for herself Needs: safety and stabilization, medication adjustment, additional coping skills, increased outpatient services Suicide Risk Level Suicide Risk Level: Moderate (q15 min suicide checks) (SI and recent self-harm with increased irritability and impulsivity but feels safe in the hospital, able to safety contract and agrees to let nursing/staff know should they develop plan, intent or feel unable to remain safe.) Suicide Risk Level Comments: Risk Factors Assessment Male: No : Yes Do You Have Access To A Gun?: No (will confirm again upon discharge) Health Problems: Yes Mental Health Diagnoses: Yes Substance Use Disorders: No Previous Attempt: No Family History of Suicide: No Previous Psychiatric Hospitalization: Yes Protective Factors Assessment Employed: Yes Stable Relationships: Yes Supportive Family: Yes Good Rapport with Provider: Yes Interval History Identifying Information ARIADNA DOWNING is a 34-year-old woman who currently lives in [place], has a history of BPAD, KIT, self-harm and bulimia and was admitted on 03/03/24 00:55 on a 201 voluntary commitment for SI and felt unable to remain safe and aggression with fear of harming her boyfriend due to impulsivity. Chief Complaint "It's been an emotional rollercoaster today". Review of Systems Sleep Information Total Hours of Sleep: 5.75 Sleep Comments: Meal Information Percent Meal Consumed - Breakfast: 100 Percent Meal Consumed - Lunch: 100 Percent Meal Consumed - Dinner: 100 Subjective Subjective Patient was seen & assessed and interval progress reviewed with treatment team nursing and social work. Slept better last night. Had difficult meeting with her boyfriend via zoom and afterwards discussed self-harming last evening in anticipation of meeting using a comb and having more self-harm urges. Stayed in the main room after her meeting and was intermittently tearful, talked on the phone with supports. On meeting with me this evening she reports she is feeling a bit better and finding groups helpful. She continues to desire discharge tomorrow and feels she will be ready then. Future oriented about a haircut this weekend and upcoming job interview. She liked the clonidine and melatonin and found them beneficial for sleep. No new medication side effects. Denies any SI, having intermittent self-harm urges particularly related to stress of meeting with boyfriend. Physical Exam Psychiatric Orientation: alert and oriented x 3 Apperance: appropriately dressed and appropriately groomed Eye Contact: good eye contact Motor Behavior: no abnormal motor movements Speech: normal rate/rhythm/volume of speech Affect: + anxious affect, + tearful affect and + irritable affect Mood: + depressed mood and + anxious mood Thought Process: goal directed thought process Thought Content: reality based without delusions Suicidal Thoughts: denies suicidal thoughts, denies suicidal plan and denies suicidal intent Homicidal Thoughts: denies homicidal thoughts and denies homicidal plan Hallucinations: no auditory hallucinations and no visual hallucinations Cognition: recent memory grossly intact, remote memory grossly intact, attention grossly intact and language grossly intact Estimated Intelligence: consistent with education level Insight: + fair insight Judgment: + limited judgement Vital Signs (Past 24 Hours) Last Vital Signs Temp 36.8 C 03/06/24 06:00 Pulse 67 03/06/24 06:00 Resp 16 03/06/24 06:00 BP 102/65 03/06/24 06:00 Pulse Ox 100 03/06/24 06:00 O2 Del Method Room Air 03/06/24 06:00 Results & Data ([facility]) Current Inpatient Medications Current Inpatient Medications: Current Inpatient Medications Acetaminophen (Acetaminophen 325 Mg Tab) 650 mg PO Q4H PRN PRN Reason: Headache or Minor Fever Stop: 04/02/24 00:54 Al Hydrox/Mg Hydrox/Simethicone (Aluminum/Magnesium Susp 30 Ml Udc) 30 ml PO Q4H PRN PRN Reason: GI Upset Stop: 04/02/24 00:54 Artificial Tears (Artificial Tears) 1 drops OPB QID PRN PRN Reason: Dryness Stop: 04/02/24 20:26 Bismuth Subsalicylate (Bismuth Subsalicylate Liqd 236 Ml) 15 ml PO PRN PRN PRN Reason: Loose Stool Stop: 04/02/24 00:54 Clonidine HCl (Clonidine Hcl 0.1 Mg Tab) 0.1 mg PO HS VALORIE Stop: 04/04/24 21:59 Last Admin: 03/05/24 21:26 Dose: 0.1 mg Hydroxyzine HCl (Hydroxyzine Hcl 25 Mg Tab) 50 mg PO HSZ PRN PRN Reason: Insomnia Stop: 04/02/24 00:54 Last Admin: 03/05/24 01:18 Dose: 50 mg Hydroxyzine HCl (Hydroxyzine Hcl 25 Mg Tab) 25 mg PO Q4H PRN PRN Reason: Anxiety Stop: 04/02/24 00:54 Last Admin: 03/03/24 22:09 Dose: 25 mg Lamotrigine (Lamotrigine 100 Mg Tab) 200 mg PO DAILY VALORIE; Protocol Stop: 04/02/24 10:59 Last Admin: 03/06/24 07:57 Dose: 200 mg Magnesium Hydroxide (Magnesium Hydroxide Susp 30 Ml Udc) 30 ml PO DAILY PRN PRN Reason: Constipation Stop: 04/02/24 00:54 Melatonin (Melatonin 3 Mg Tab) 3 mg PO PM VALORIE Stop: 04/04/24 20:59 Last Admin: 03/05/24 20:35 Dose: 3 mg Propranolol HCl (Propranolol Hcl 20 Mg Tab) 20 mg PO DAILY@1500 VALORIE Stop: 04/05/24 14:59 Sodium Chloride (Sodium Chloride 0.65% Na Soln 45 Ml (Stone)) 1 - 2 sprays NA PRN PRN PRN Reason: Nasal Dryness/Congestion Stop: 04/02/24 00:54 Valacyclovir HCl (Valacyclovir Hcl 500 Mg Tablet) 1,000 mg PO BID VALORIE Stop: 04/02/24 20:59 Last Admin: 03/06/24 07:58 Dose: 1,000 mg Mental Health & Subst Abuse Tx Psychiatrist Name of Psychiatrist: Angelic Olivo Psychiatrist's Date Of Appointment With Psychiatric Provider: 03/24/2024 Time of Appointment with Psychiatrist: 8:45AM- arrival time 8:30AM Psychiatric Appointment Comment: [address] [place] [address] Therapist Name of Therapist: Baylee Michele Therapist's Date of Therapist Appointment: 03/10/2024 Time of Therapist Appointment: 3pm Therapy Appointment Comment: [address], [place], [place] [address] Post Discharge Appointments Primary Care Physician Name Of Family Doctor/PCP: [facility] Date of Future Appointment with PCP: 03/11/2024 Time of Appointment with PCP: 1:45PM Provider Appointment Comment: [address], [place] [address] (3) Bipolar disorder Active/Remission status: remission status unspecified Qualified Code(s): F31.9 - Bipolar disorder, unspecified
[2024-03-06] MEDS: PROPRANOLOL HCL 20 MG TAB PO SCH (12:37)
[2024-03-06] MEDS: MELATONIN 3 MG TAB PO SCH (19:22)
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
== END 2024-03-07 17:35 | disposition home or self-care (01) | DRG 885 ==
LOC: ED 21:17 → 3S 03-03 00:55